=== PATIENT | female | born 1995 | race African-American/Black ===

== ENCOUNTER 2017-02-01 09:14 | Emergency (ER) | payer OTHER ==
[2017-02-01 09:20] VITALS: RESP 16
[2017-02-01] MEDS ORDERED: SODIUM CHLORIDE 0.9% 1,000 ML IV STA (09:45)
[2017-02-01] MEDS ORDERED: METOCLOPRAMIDE 5 MG/ML 2 ML VIAL IVP STA (09:45)
--- NOTE | 2017-02-01 09:47 | ED ---
Nausea/Vomiting/Diarrhea HPI - General Chief complaint: Nausea/Vomiting/Diarrhea Stated complaint: NVD Time Seen by Provider: 02/01/17 09:41 Source: patient, RN notes reviewed Mode of arrival: ambulatory Limitations: no limitations - History of Present Illness Initial comments: Patient 21-year-old female who is G2, P0, 15 weeks with chief complaint of symptoms of nausea vomiting that occurred yesterday. She states that she's had multiple episodes. States decreased appetite. Denies any signs of blood. Denies any abdominal pain. Denies any vaginal bleeding or discharge. Patient denies any recent fever, chills, shortness of breath, chest pain, back pain, abdominal pain, numbness or tingling, dysuria or hematuria, constipation or diarrhea, headaches or visual changes, or any other complaints. - Related Data Previous Rx's Medication Instructions Recorded Metoclopramide HCl [Reglan] 10 mg PO Q6HR PRN #5 day 02/01/17 Allergies Allergy/AdvReac Type Severity Reaction Status Date / Time No Known Allergies Allergy Verified 02/01/17 09:20 Review of Systems ROS Statement: Those systems with pertinent positive or pertinent negative responses have been documented in the HPI. ROS Other: All systems not noted in ROS Statement are negative. Past Medical History Past Medical History: Diabetes Mellitus History of Any Multi-Drug Resistant Organisms: None Reported Past Surgical History: No Surgical Hx Reported Past Psychological History: No Psychological Hx Reported Smoking Status: Current every day smoker Past Alcohol Use History: None Reported Past Drug Use History: None Reported General Exam - General Exam Comments Initial Comments: General: The patient is awake and alert, in no distress, and does not appear acutely ill. Eye: Pupils are equal, round and reactive to light, extra-ocular movements are intact. No nystagmus. There is normal conjunctiva bilaterally. No signs of icterus. Ears, nose, mouth and throat: There are moist mucous membranes and no oral lesions. Neck: The neck is supple, there is no tenderness or JVD. Cardiovascular: There is a regular rate and rhythm. No murmur, rub or gallop is appreciated. Respiratory: Lungs are clear to auscultation, respirations are non-labored, breath sounds are equal. No wheezes, stridor, rales, or rhonchi. Gastrointestinal: Soft, non-distended, non-tender abdomen without masses or organomegaly noted. There is no rebound or guarding present. No CVA tenderness. Bowel sounds are unremarkable. Musculoskeletal: Normal ROM, no tenderness. Strength 5/5. Sensation intact. Pulses equal bilaterally 2+. Neurological: A&O x 3. CN II-XII intact, There are no obvious motor or sensory deficits. Coordination appears grossly intact. Speech is normal. Skin: Skin is warm and dry and no rashes or lesions are noted. Psychiatric: Cooperative, appropriate mood & affect, normal judgment. Limitations: no limitations Course Vital Signs 02/01/17 09:16 Temperature 96.0 F L Pulse Rate 111 H Respiratory 16 Rate Blood Pressure 123/80 O2 Sat by Pulse 100 Oximetry Medical Decision Making - Medical Decision Making Patient's ultrasound shows single IUP measuring 15 weeks 2 days. Heart rate 158. Patient reexamined at this time states she is ready to go home. States she's feeling better. Request nausea medication to go home with. Patient will be discharged advised follow-up through [facility] over the next 2 days. Advised return here to the emergency room if any symptoms increase or worsen or for any other concerns. Disposition Clinical Impression: Hyperemesis gravidarum Disposition: HOME SELF-CARE Condition: Good Instructions: Hyperemesis Gravidarum (ED) Additional Instructions: Please use medication as discussed. Please follow-up with the joint of the next 2 days. Please return to emergency room if the symptoms increase or worsen or for any other concerns. Prescriptions: Metoclopramide HCl [Reglan] 10 mg PO Q6HR PRN #5 day PRN Reason: Nausea Time of Disposition: 11:37
[2017-02-01 11:52] VITALS: BP 123/79; PULSE 93; TEMP 98.2
--- NOTE | 2017-02-01 12:32 | US ---
EXAMINATION TYPE: US OB >= 14 wk fetus DATE OF EXAM: 02/01/2017 11:20 AM COMPARISON: None CLINICAL HISTORY: Pain TECHNIQUE: Transabdominal (TA) GESTATIONAL AGE / DATING Physician Established: not yet established Dates by LMP: unknown Dates by First Scan: 1st scan today Dates by Current Scan: (15 weeks/2 days) EDC: 07/24/17 SURVEY IUP: Single PLACENTA: Posterior PREVIA: possible low lying, patient bladder not full, difficult to assess RANDY: 11.5 cm CERVICAL LENGTH (transabdominal: norm > 3.0cm): 2.6 cm CERVICAL LENGTH (transvaginal: norm> 2.5cm): not done per Adria in ER, patient vomiting during keon t BIOMETRY PRESENTATION: Variable BPD: 2.8 cm 15 weeks / 1 days HC: 10.9 cm 15 weeks / 2 days AC: 8.9 cm 15 weeks / 1 days FL: 1.6 cm 14 weeks / 4 days ESTIMATED WEIGHT IN GRAMS: 110 grams ESTIMATED WEIGHT IN LBS/OZS: 0 lbs. 4 oz. WEIGHT PERCENTAGE BASED ON ESTABLISHED DATES: 25% HC/AC: 1.2 FL/AC: 17.4 HEART RATE: 158 bpm RHYTHM: Normal Technically difficult study, baby very active and patient vomiting during test. IMPRESSION: 1. Single intrauterine gestation estimated at 15 weeks 2 days gestation based on the current ultrasou nd measurements. 2. A low-lying placenta cannot be excluded. This may be technically limited due to incomplete urinary bladder filling during the exam. Follow-up is recommended. 3. Technically difficult examination due to patient's condition and activity during the exam. 4. small parts are not evaluated during the exam.
== END 2017-02-01 11:53 | disposition home or self-care (01) ==
LOC: EC 09:14
DX: O21.0 Mild hyperemesis gravidarum (principal); O99.89 Other specified diseases and conditions complicating pregnancy, childbirth and the puerperium; O99.332 Smoking (tobacco) complicating pregnancy, second trimester; R19.7 Diarrhea, unspecified; F17.200 Nicotine dependence, unspecified, uncomplicated; Z3A.15 15 weeks gestation of pregnancy
CPT/HCPCS: 76805; 99284; 96374; J2765

== ENCOUNTER 2017-02-10 10:07 | Inpatient (IN) | payer OTHER ==
[2017-02-10] MEDS ORDERED: FAMOTIDINE 20 MG/2 ML VIAL IV STA (11:36)
[2017-02-10] MEDS ORDERED: METOCLOPRAMIDE 5 MG/ML 2 ML VIAL IVP STA (11:36)
[2017-02-10] MEDS ORDERED: SODIUM CHLORIDE 0.9% 2,000 ML IV STA (11:36)
--- NOTE | 2017-02-10 11:39 | ED ---
General Adult HPI - General Chief complaint: Nausea/Vomiting/Diarrhea Stated complaint: vomiting, 15 weeks Time Seen by Provider: 02/10/17 11:00 Source: patient, RN notes reviewed Mode of arrival: ambulatory Limitations: no limitations - History of Present Illness Initial comments: Patient is a pleasant 21-year-old female presenting to the emergency Department with nausea and vomiting. Patient states she has vomited since being a , somewhat worse over the past couple of weeks. Patient saw her doctor Tuesday who had considered having her hospitalized however refuses at that time. Patient does see a high school principal doctor in [place]. Patient is diabetic. Patient states her blood sugars have been running high. No abdominal pain. No pelvic pain. No vaginal bleeding. No constipation or diarrhea. - Related Data Previous Rx's Medication Instructions Recorded Metoclopramide HCl [Reglan] 10 mg PO Q6HR PRN #5 day 02/01/17 Allergies Allergy/AdvReac Type Severity Reaction Status Date / Time No Known Allergies Allergy Verified 02/10/17 10:36 Review of Systems ROS Statement: Those systems with pertinent positive or pertinent negative responses have been documented in the HPI. ROS Other: All systems not noted in ROS Statement are negative. Constitutional: Denies: fever Eyes: Denies: eye pain ENT: Denies: ear pain Respiratory: Denies: cough Cardiovascular: Denies: chest pain Endocrine: Denies: fatigue Gastrointestinal: Reports: nausea, vomiting. Denies: abdominal pain Genitourinary: Denies: dysuria Musculoskeletal: Denies: back pain Skin: Denies: rash Neurological: Denies: weakness Past Medical History Past Medical History: Diabetes Mellitus History of Any Multi-Drug Resistant Organisms: None Reported Past Surgical History: No Surgical Hx Reported Past Psychological History: No Psychological Hx Reported Smoking Status: Former smoker Past Alcohol Use History: None Reported Past Drug Use History: None Reported General Exam Limitations: no limitations General appearance: alert, in no apparent distress Head exam: Present: atraumatic Eye exam: Present: normal appearance, PERRL ENT exam: Present: normal oropharynx Neck exam: Present: normal inspection Respiratory exam: Present: normal lung sounds bilaterally Cardiovascular Exam: Present: tachycardia GI/Abdominal exam: Present: soft, distended (Suprapubic distention consistent with patient's reported 15 weeks gravid state), normal bowel sounds. Absent: tenderness, guarding, rebound, rigid Extremities exam: Present: normal inspection Neurological exam: Present: alert Psychiatric exam: Present: normal affect, normal mood Skin exam: Absent: rash Course Vital Signs 02/10/17 10:37 Temperature 98 F Pulse Rate 126 H Respiratory 20 Rate Blood Pressure 114/90 O2 Sat by Pulse 100 Oximetry Medical Decision Making - Medical Decision Making Patient reexamined and somewhat improved. Patient is tolerating some oral intake. Patient does have dehydration confirmed with laboratory data. Acetone is positive. Acetone is likely a combination of mild DKA with dehydration from hyperemesis. Case was discussed in detail with Dr. Kern who is comfortable with admitting the patient and does recommend DKA protocol. Consult for on-call OB/ [facility]. - Lab Data Result diagrams: 02/10/17 11:15 02/10/17 11:15 Lab Results 02/10/17 02/10/17 02/10/17 Range/Units 11:13 11:15 11:15 WBC 10.7 H (3.8-10.6) k/uL RBC 4.54 (3.80-5.40) m/uL Hgb 13.1 (11.4-16.0) gm/dL Hct 40.7 (34.0-46.0) % MCV 89.8 (80.0-100.0) fL MCH 28.8 (25.0-35.0) pg MCHC 32.1 (31.0-37.0) g/dL RDW 12.5 (11.5-15.5) % Plt Count 404 (150-450) k/uL Neutrophils % 78 % Lymphocytes % 15 % Monocytes % 4 % Eosinophils % 1 % Basophils % 1 % Neutrophils # 8.3 H (1.3-7.7) k/uL Lymphocytes # 1.6 (1.0-4.8) k/uL Monocytes # 0.4 (0-1.0) k/uL Eosinophils # 0.1 (0-0.7) k/uL Basophils # 0.1 (0-0.2) k/uL Sodium 132 L (137-145) mmol/L Potassium 4.7 (3.5-5.1) mmol/L Chloride 96 L (98-107) mmol/L Carbon Dioxide 24 (22-30) mmol/L Anion Gap 12 mmol/L BUN 9 (7-17) mg/dL Creatinine 0.40 L (0.52-1.04) mg/dL Est GFR (MDRD) Af Amer >60 (>60 ml/min/1.73 sqM) Est GFR (MDRD) Non-Af >60 (>60 ml/min/1.73 sqM) Glucose 262 H (74-99) mg/dL POC Glucose (mg/dL) 275 H (75-99) mg/dL POC Glu [employer] Software Developer ID Lydia Hernandez Calcium 9.9 (8.4-10.2) mg/dL Total Bilirubin 0.7 (0.2-1.3) mg/dL AST 24 (14-36) U/L ALT 21 (9-52) U/L Alkaline Phosphatase 95 (38-126) U/L Total Protein 8.2 (6.3-8.2) g/dL Albumin 4.2 (3.5-5.0) g/dL Amylase 51 (30-110) U/L Lipase 34 (23-300) U/L HCG, Quant mIU/mL Urine Color Urine Appearance (Clear) Urine pH (5.0-8.0) Ur Specific Roll (1.001-1.035) Urine Protein (Negative) Urine Glucose (UA) (Negative) Urine Ketones (Negative) Urine Blood (Negative) Urine Nitrite (Negative) Urine Bilirubin (Negative) Urine Urobilinogen (<2.0) mg/dL Ur Leukocyte Esterase (Negative) Urine RBC (0-5) /hpf Urine WBC (0-5) /hpf Ur Squamous Epith Cells (0-4) /hpf Acetone, Qual Positive (Negative) 02/10/17 02/10/17 Range/Units 11:15 12:10 WBC (3.8-10.6) k/uL RBC (3.80-5.40) m/uL Hgb (11.4-16.0) gm/dL Hct (34.0-46.0) % MCV (80.0-100.0) fL MCH (25.0-35.0) pg MCHC (31.0-37.0) g/dL RDW (11.5-15.5) % Plt Count (150-450) k/uL Neutrophils % % Lymphocytes % % Monocytes % % Eosinophils % % Basophils % % Neutrophils # (1.3-7.7) k/uL Lymphocytes # (1.0-4.8) k/uL Monocytes # (0-1.0) k/uL Eosinophils # (0-0.7) k/uL Basophils # (0-0.2) k/uL Sodium (137-145) mmol/L Potassium (3.5-5.1) mmol/L Chloride (98-107) mmol/L Carbon Dioxide (22-30) mmol/L Anion Gap mmol/L BUN (7-17) mg/dL Creatinine (0.52-1.04) mg/dL Est GFR (MDRD) Af Amer (>60 ml/min/1.73 sqM) Est GFR (MDRD) Non-Af (>60 ml/min/1.73 sqM) Glucose (74-99) mg/dL POC Glucose (mg/dL) (75-99) mg/dL POC Glu Scientific Software Developer ID Calcium (8.4-10.2) mg/dL Total Bilirubin (0.2-1.3) mg/dL AST (14-36) U/L ALT (9-52) U/L Alkaline Phosphatase (38-126) U/L Total Protein (6.3-8.2) g/dL Albumin (3.5-5.0) g/dL Amylase (30-110) U/L Lipase (23-300) U/L HCG, Quant 79066.8 mIU/mL Urine Color Yellow Urine Appearance Cloudy H (Clear) Urine pH 6.5 (5.0-8.0) Ur Specific Roll 1.030 (1.001-1.035) Urine Protein Trace H (Negative) Urine Glucose (UA) 4+ H (Negative) Urine Ketones 4+ H (Negative) Urine Blood Negative (Negative) Urine Nitrite Negative (Negative) Urine Bilirubin Negative (Negative) Urine Urobilinogen <2.0 (<2.0) mg/dL Ur Leukocyte Esterase Small H (Negative) Urine RBC 7 H (0-5) /hpf Urine WBC 17 H (0-5) /hpf Ur Squamous Epith Cells 1 (0-4) /hpf Acetone, Qual (Negative) Critical Care Time Critical Care Time: Yes Total Critical Care Time: 32 Disposition Clinical Impression: Hyperemesis gravidarum, Diabetic ketoacidosis Disposition: ADMITTED IP TO THIS HOSP
[2017-02-10 11:54] LABS: Basophils # (A) 0.1 k/uL (0-0.2); Basophils % (A) 1 %; CH 30.2; CHCM 33.8; Eosinophils # (A) 0.1 k/uL (0-0.7); Eosinophils % (A) 1 %; HCT 40.7 % (34.0-46.0); HDW 2.59; HGB 13.1 gm/dL (11.4-16.0); Luc # (Auto) 0.17; Luc % (Auto) 2; Lymphocytes # (A) 1.6 k/uL (1.0-4.8); Lymphocytes % (A) 15 %; MCH 28.8 pg (25.0-35.0); MCHC 32.1 g/dL (31.0-37.0); MCV 89.8 fL (80.0-100.0); Monocytes # (A) 0.4 k/uL (0-1.0); Monocytes % (A) 4 %; Neutrophils # (A) 8.3 k/uL (1.3-7.7); Neutrophils % (A) 78 %; RBC 4.54 m/uL (3.80-5.40); RDW 12.5 % (11.5-15.5); WBC 10.7 k/uL (3.8-10.6); WBC (Perox) 10.52
[2017-02-10 12:07] LABS: ALT 21 U/L (9-52); AST 24 U/L (14-36); Alkaline Phosphatase 95 U/L (38-126); Amylase 51 U/L (30-110); Anion Gap 12 mmol/L; Blood Urea Nitrogen 9 mg/dL (7-17); Calcium 9.9 mg/dL (8.4-10.2); Carbon Dioxide 24 mmol/L (22-30); Chloride 96 mmol/L (98-107); Glucose 262 mg/dL (74-99); Non-African American GFR(MDRD) >60 (>60 ml/min/1.73 sqM); Potassium 4.7 mmol/L (3.5-5.1); Sodium 132 mmol/L (137-145); Total Bilirubin 0.7 mg/dL (0.2-1.3); Total Protein 8.2 g/dL (6.3-8.2)
[2017-02-10 12:27] LABS: Appearance,Urine Cloudy (Clear); Bilirubin,Urine Negative (Negative); Glucose,Urine (UA) 4+ (Negative); Leukocyte Esterase,Urine Small (Negative); Nitrite,Urine Negative (Negative); PH, Urine 6.5 (5.0-8.0); Particle Count 6862; Protein,Urine Trace (Negative); RBC,Urine 7 /hpf (0-5); Squamous Epithelial Cell,Urine 1 /hpf (0-4); UA Billing (MACRO vs. MICRO) MICRO; Urobilinogen,Urine <2.0 mg/dL (<2.0); WBC,Urine 17 /hpf (0-5)
[2017-02-10 12:59] LABS: Glucose,Whole Blood 275 mg/dL (75-99)
[2017-02-10 13:44] LABS: Ketones,Urine 4+ (Negative)
[2017-02-10] MEDS ORDERED: INSULIN REGULAR BOLUS (FROM DRIP BAG) IV ONE (15:09)
[2017-02-10] MEDS ORDERED: NITROFURANTOIN MONOHYD/M-CRYST 100 MG CAP PO STA (15:14)
[2017-02-10] MEDS: SODIUM CHLORIDE 0.9% 1,000 ML IV SCH (15:41)
[2017-02-10 15:46] LABS: Glucose,Whole Blood 166 mg/dL (75-99)
[2017-02-10] MEDS ORDERED: INSULIN REGULAR 100 UNIT in SODIUM CHLORIDE 0.9% 100 ML IV SCH (16:00)
[2017-02-10] MEDS ORDERED: D5-0.45% NACL WITH KCL 20MEQ/L 1,000 ML IV SCH (16:00)
[2017-02-10 16:24] LABS: Glucose,Whole Blood 185 mg/dL (75-99)
[2017-02-10 17:08] LABS: Glucose,Whole Blood 147 mg/dL (75-99)
[2017-02-10] MEDS: METOCLOPRAMIDE 5 MG/ML 2 ML VIAL IVP SCH (17:37)
[2017-02-10 18:06] LABS: Anion Gap 8 mmol/L; Blood Urea Nitrogen 7 mg/dL (7-17); Carbon Dioxide 21 mmol/L (22-30); Chloride 102 mmol/L (98-107); Glucose 93 mg/dL (74-99); Non-African American GFR(MDRD) >60 (>60 ml/min/1.73 sqM); Sodium 131 mmol/L (137-145)
[2017-02-10 18:38] LABS: Glucose,Whole Blood 150 mg/dL (75-99)
[2017-02-10] MEDS ORDERED: ZOLPIDEM 5 MG TAB PO PRN (19:38)
[2017-02-10 20:09] LABS: Glucose,Whole Blood 139 mg/dL (75-99)
[2017-02-10 21:09] LABS: Glucose,Whole Blood 139 mg/dL (75-99)
--- NOTE | 2017-02-10 21:27 | US ---
EXAMINATION TYPE: US OB >= 14 wk fetus DATE OF EXAM: 02/10/2017 7:48 PM COMPARISON: Prior in PACS CLINICAL HISTORY: DKA TECHNIQUE: Transvaginal (TV) and Transabdominal (TA) GESTATIONAL AGE / DATING Physician Established: (16 weeks/4 days) EDC: 07/24/2017 Dates by LMP: Unknown Dates by First Scan: (16 weeks/4 days) EDC: 07/24/2017 Dates by Current Scan: (16 weeks/2 days) EDC: 07/26/2017 SURVEY IUP: Single PLACENTA: Posterior PREVIA: Complete. No previa visualized on transabdominal imaging, however when the patient emptied h er bladder and the cervix was imaged transvaginally, there was complete previa visualized RANDY: 12.3 cm Normal CERVICAL LENGTH (transabdominal: norm > 3.0cm): 2.4 cm CERVICAL LENGTH (transvaginal: norm> 2.5cm): 2.5 cm (Supplemental transvaginal imaging performed to verify cervical length.) BIOMETRY PRESENTATION: Breech LIE: Longitudinal BPD: 3.35 cm 16 weeks / 3 days HC: 12.4 cm 16 weeks / 2 days AC: 10.6 cm 16 weeks / 4 days FL: 1.94 cm 15 weeks / 5 days ESTIMATED WEIGHT IN GRAMS: 148.5 grams ESTIMATED WEIGHT IN LBS/OZS: 0 lbs. 5 oz. WEIGHT PERCENTAGE BASED ON ESTABLISHED DATES: 21.3% HC/AC: 1.16 Normal FL/AC: 18.1 Normal HEART RATE: 153 bpm RHYTHM: Normal Viable IUP, measurements congruent with dates. IMPRESSION: There is a low-lying posterior placenta. I do not see a placenta previa. Cervix is closed and measure s 2.6 cm.
[2017-02-10] MEDS: NITROFURANTOIN MONOHYD/M-CRYST 100 MG CAP PO SCH (21:49)
[2017-02-10] MEDS: INSULIN LISPRO (humaLOG) 300 UNIT/3 ML VIAL SQ SCH (21:50)
[2017-02-10 22:04] LABS: Anion Gap 9 mmol/L; Blood Urea Nitrogen 7 mg/dL (7-17); Carbon Dioxide 21 mmol/L (22-30); Chloride 101 mmol/L (98-107); Glucose 150 mg/dL (74-99); Non-African American GFR(MDRD) >60 (>60 ml/min/1.73 sqM); Phosphorous 3.4 mg/dL (2.5-4.5); Potassium 4.3 mmol/L (3.5-5.1); Sodium 131 mmol/L (137-145)
[2017-02-11] MEDS ORDERED: METOCLOPRAMIDE 5 MG/ML 2 ML VIAL ONE
[2017-02-11 05:35] LABS: Glucose,Whole Blood 214 mg/dL (75-99)
[2017-02-11] MEDS: SODIUM CHLORIDE 0.9% 1,000 ML IV SCH ×2 (05:50→12:10)
[2017-02-11] MEDS: METOCLOPRAMIDE 5 MG/ML 2 ML VIAL IVP SCH ×3 (05:50→12:09)
[2017-02-11] MEDS: INSULIN LISPRO (humaLOG) 300 UNIT/3 ML VIAL SQ SCH ×2 (06:40→12:09)
[2017-02-11 06:54] LABS: Basophils % (A) 0 %; CH 29.9; CHCM 33.7; Eosinophils # (A) 0.1 k/uL (0-0.7); Eosinophils % (A) 1 %; HCT 33.5 % (34.0-46.0); HDW 2.58; HGB 11.2 gm/dL (11.4-16.0); Luc # (Auto) 0.14; Luc % (Auto) 2; Lymphocytes # (A) 2.2 k/uL (1.0-4.8); Lymphocytes % (A) 23 %; MCH 29.8 pg (25.0-35.0); MCHC 33.5 g/dL (31.0-37.0); MCV 88.9 fL (80.0-100.0); Monocytes # (A) 0.5 k/uL (0-1.0); Monocytes % (A) 5 %; Neutrophils # (A) 6.4 k/uL (1.3-7.7); Neutrophils % (A) 69 %; RBC 3.77 m/uL (3.80-5.40); RDW 12.5 % (11.5-15.5); WBC 9.3 k/uL (3.8-10.6)
[2017-02-11 07:12] LABS: ALT 19 U/L (9-52); AST 10 U/L (14-36); Alkaline Phosphatase 76 U/L (38-126); Anion Gap 8 mmol/L; Blood Urea Nitrogen 4 mg/dL (7-17); Carbon Dioxide 25 mmol/L (22-30); Chloride 100 mmol/L (98-107); Glucose 199 mg/dL (74-99); Non-African American GFR(MDRD) >60 (>60 ml/min/1.73 sqM); Potassium 4.4 mmol/L (3.5-5.1); Sodium 133 mmol/L (137-145); Total Bilirubin 0.4 mg/dL (0.2-1.3); Total Protein 6.5 g/dL (6.3-8.2)
[2017-02-11 07:58] VITALS: TEMP 98.2
[2017-02-11] MEDS ORDERED: FAMOTIDINE 20 MG in SODIUM CHLORIDE 0.9% 50 ML IVPB SCH (09:00)
[2017-02-11] MEDS ORDERED: FAMOTIDINE 20 MG/2 ML VIAL IV SCH (09:00)
[2017-02-11] MEDS: NITROFURANTOIN MONOHYD/M-CRYST 100 MG CAP PO SCH (09:46)
--- NOTE | 2017-02-11 09:48 | P.OBCN ---
History of Present Illness Consult date: 02/11/17 Requesting physician: Artur Hughes Reason for consult: other (ob care) Chief complaint: uncontrolled diabetes History of present illness: 21-year-old presented to the hospital at 16 weeks with uncontrolled diabetes. She sees and obstetric position in [place] out of [place]. Last visit was just this past Tuesday. Ultrasound done here yesterday showed a viable 16 week fetus with a heart rate of 153. Her blood sugars remain uncontrolled. Review of Systems All systems: negative Constitutional: Denies chills, Denies fever Eyes: denies blurred vision, denies pain Ears, nose, mouth and throat: Denies headache, Denies sore throat Cardiovascular: Denies chest pain, Denies shortness of breath Respiratory: Denies cough Gastrointestinal: Denies abdominal pain, Denies diarrhea, Denies nausea, Denies vomiting Genitourinary: Denies dysuria, Denies hematuria Musculoskeletal: Denies myalgias Integumentary: Denies pruritus, Denies rash Neurological: Denies numbness, Denies weakness Psychiatric: Denies anxiety, Denies depression Endocrine: Denies fatigue, Denies weight change Past Medical History Past Medical History: Diabetes Mellitus Additional Past Medical History / Comment(s): OB history: She's had one miscarriage. This is her second . History of Any Multi-Drug Resistant Organisms: None Reported Past Surgical History: No Surgical Hx Reported Past Psychological History: No Psychological Hx Reported Smoking Status: Never smoker Past Alcohol Use History: None Reported Past Drug Use History: None Reported - Past Family History Mother Family Medical History: Diabetes Mellitus Medications and Allergies Allergies Allergy/AdvReac Type Severity Reaction Status Date / Time No Known Allergies Allergy Verified 02/10/17 10:36 Exam Osteopathic Statement: *. No significant issues noted on an osteopathic structural exam other than those noted in the History and Physical/Consult. - Vital Signs Vital signs: Vital Signs Temp Pulse Pulse Resp BP BP Pulse Ox 02/11/17 08:00 18 02/11/17 07:56 98.2 F 103 H 18 99/63 100 02/11/17 04:00 97.3 F L 91 18 105/71 100 02/10/17 23:02 97.1 F L 90 17 109/65 98 02/10/17 20:22 97.6 F 103 H 17 123/88 97 02/10/17 16:42 90 17 100 02/10/17 16:24 95 18 103/72 99 02/10/17 15:56 97.2 F L 92 16 107/69 99 Intake and Output 02/10/17 02/11/17 02/11/17 22:59 06:59 14:59 Intake Total 413.088 600 120 Balance 413.088 600 120 Intake: IV 400 D5-0.45% NaCl with KCl 400 20Meq/l 1,000 ml @ 50 mls /hr IV .Q20H DUSTIN Rx#: [id number] Intake, IV Titration 13.088 Amount Insulin Regular 100 unit 13.088 In Sodium Chloride 0.9% 100 ml @ 0.1 UNITS/KG/HR 6.55 mls/hr IV .[id number] DUSTIN Rx#:[id number] Oral 600 120 Other: # Voids 2 Weight 64.86 kg 65.9 kg Heart: Regular rate and rhythm Lungs: Clear to auscultation bilaterally Abdomen: Soft, nontender Extremities: Negative Homans sign Results Result Diagrams: 02/11/17 06:27 02/11/17 06:27 Abnormal Lab Results - Last 24 Hours (Table) 02/10/17 02/10/17 02/10/17 Range/Units 15:44 16:22 17:06 RBC (3.80-5.40) m/uL Hgb (11.4-16.0) gm/dL Hct (34.0-46.0) % Sodium (137-145) mmol/L Carbon Dioxide (22-30) mmol/L BUN (7-17) mg/dL Creatinine (0.52-1.04) mg/dL Glucose (74-99) mg/dL POC Glucose (mg/dL) 166 H 185 H 147 H (75-99) mg/dL AST (14-36) U/L Albumin (3.5-5.0) g/dL 02/10/17 02/10/17 02/10/17 Range/Units 17:41 18:35 20:06 RBC (3.80-5.40) m/uL Hgb (11.4-16.0) gm/dL Hct (34.0-46.0) % Sodium 131 L (137-145) mmol/L Carbon Dioxide 21 L (22-30) mmol/L BUN (7-17) mg/dL Creatinine 0.34 L (0.52-1.04) mg/dL Glucose (74-99) mg/dL POC Glucose (mg/dL) 150 H 139 H (75-99) mg/dL AST (14-36) U/L Albumin (3.5-5.0) g/dL 02/10/17 02/10/17 02/11/17 Range/Units 21:07 21:12 05:33 RBC (3.80-5.40) m/uL Hgb (11.4-16.0) gm/dL Hct (34.0-46.0) % Sodium 131 L (137-145) mmol/L Carbon Dioxide 21 L (22-30) mmol/L BUN (7-17) mg/dL Creatinine 0.36 L (0.52-1.04) mg/dL Glucose 150 H (74-99) mg/dL POC Glucose (mg/dL) 139 H 214 H (75-99) mg/dL AST (14-36) U/L Albumin (3.5-5.0) g/dL 02/11/17 02/11/17 Range/Units 06:27 06:27 RBC 3.77 L (3.80-5.40) m/uL Hgb 11.2 L (11.4-16.0) gm/dL Hct 33.5 L (34.0-46.0) % Sodium 133 L (137-145) mmol/L Carbon Dioxide (22-30) mmol/L BUN 4 L (7-17) mg/dL Creatinine 0.36 L (0.52-1.04) mg/dL Glucose 199 H (74-99) mg/dL POC Glucose (mg/dL) (75-99) mg/dL AST 10 L (14-36) U/L Albumin 3.2 L (3.5-5.0) g/dL Assessment and Plan (1) Hyperemesis gravidarum Status: Acute (2) Type 1 diabetes mellitus affecting in second trimester, antepartum Status: Acute Plan: 1. There is no further obstetrical care needed at this time with this admission but she will need close follow-up especially with her blood sugars outpatient with her high risk doctors in [place]. I did explain to the patient the risks of having uncontrolled diabetes and including heart defects and stillbirth.
[2017-02-11 11:56] LABS: Glucose,Whole Blood 329 mg/dL (75-99)
[2017-02-11 12:10] LABS: Hemoglobin A1C 8.7 % (4.2-6.1)
[2017-02-11 12:12] VITALS: BMI 22.7
[2017-02-11 12:15] VITALS: BP 112/65; PULSE 100; RESP 17
--- NOTE | 2017-02-11 22:00 | HP ---
The patient is a 21-year-old female, came in with intractable nausea, vomiting and patient is, I believe, 9 weeks , and patient appears to have hyperemesis gravidarum. Patient appears to have gestational diabetes mellitus as well, did have elevated blood sugars and when she was admitted, there was a concern about DKA. Because of nausea and vomiting, patient may have starvation ketosis that, along with elevated blood sugar, may have contributed to her ketoacidosis as well and patient has an anion gap of around 12, because of which patient was admitted here. Patient was put on IV insulin ( ) which was switched to subcutaneous t.i.d. insulin. Patient's nausea and vomiting improved with Reglan. Patient denied any dysuria or chills. Patient had a cough, but no dysuria. Patient denied any dysuria, although urine is a little abnormal, because of which patient was put on nitrofurantoin with subsequent resolution of symptoms at this point of time. Patient denied any vaginal bleed. Patient denied any constipation or diarrhea. Patient was seen by OB Service here. They recommended evaluation by OB and follow in [facility] for her high-risk because of her gestational diabetes mellitus. Patient's symptoms improved at this point of time. Patient is not in DKA. Patient will be discharged on sliding scale insulin, nitrofurantoin for a couple more days along with Reglan on p.r.n. basis for hyperemesis gravidarum. Home medications include: 1. Reglan. 2. Zofran. ALLERGIES: No known drug allergies. REVIEW OF SYSTEMS: CONSTITUTIONAL: As described in HPI. Was complaining of fatigue, tiredness. HEENT: No recent visual problems or hearing problems. Denied any sore throat. CARDIOVASCULAR: No chest pain, orthopnea, PND, no palpitations, no syncope. PULMONARY: No shortness of breath, no cough, no hemoptysis. GASTROINTESTINAL: As described in HPI. NEUROLOGICAL: No headaches, no weakness, no numbness. HEMATOLOGICAL: Denies any bleeding or petechiae. GENITOURINARY: Denies any burning micturition, frequency, or urgency. MUSCULOSKELETAL/RHEUMATOLOGICAL: Denies any joint pain, swelling, or any muscle pain. ENDOCRINE: Denies any polyuria or polydipsia. PAST MEDICAL HISTORY: Gestational diabetes mellitus. SOCIAL HISTORY: Former smoker. Denied any alcohol abuse or any drug abuse. FAMILY HISTORY: Significant for diabetes mellitus in multiple family members. PHYSICAL EXAMINATION: VITAL SIGNS: Temperature 98.0, pulse of 126 when she came in, which then came down to 90, respiratory rate of 20, blood pressure is 114/90, saturating at 100% on room air. GENERAL: Patient appears to be a little tired; alert and oriented x3. HEENT: Pupils are round and equally reacting to light. EOMI. No scleral icterus. No conjunctival pallor. Normocephalic, atraumatic. No pharyngeal erythema. No thyromegaly. CARDIOVASCULAR: S1 and S2 present. No murmurs, rubs, or gallops. PULMONARY: Chest is clear to auscultation, no wheezing or crackles. ABDOMEN: Deferred to OB Services. OB: Deferred to OB Services. MUSCULOSKELETAL: No joint swelling or deformity. EXTREMITIES: No cyanosis, clubbing, or pedal edema. NEUROLOGICAL: Gross neurological examination did not reveal any focal deficits. SKIN: No rashes. LABORATORY DATA: CBC, CMP are abnormal for slightly elevated WBC count of 10,900, reactive leukocytosis. Sodium is 132. AST and ALT and lipase are essentially within normal limits. Urine is positive for acetone. UA was reviewed as well. ASSESSMENT AND PLAN: 1. Hyperemesis gravidarum. Symptomatic treatment with Reglan. Patient will be discharged on Reglan. 2. Possible asymptomatic bacteriuria for which she is now taking Bactrim. In terms of the , patient will need to be treated even for asymptomatic bacteriuria and the patient will receive 2 days of antibiotic therapy and when discharged on 3 more days of antibiotic. 3. Ketoacidosis and gestational diabetes mellitus. The patient may have component of mild diabetic ketoacidosis, mostly has starvation ketosis. Patient will be discharged on sliding scale insulin. Patient was started on diet here. Patient was evaluated by Obstetrical Services here. 4. Discharge diet: Diabetic diet. 5. Activity as tolerated. 6. Will refer her to Dr. Carla Connor for medicine followup and patient will be asked to follow up with doctor in [facility] for high-risk .
== END 2017-02-11 15:01 | disposition home or self-care (01) | DRG 781 ==
LOC: EC 10:07 → 6SEL 15:11
PROVIDERS: ADMIT Internal Medicine; ATTEND Internal Medicine
DX: O21.1 Hyperemesis gravidarum with metabolic disturbance (principal); E86.0 Dehydration; O24.410 Gestational diabetes mellitus in pregnancy, diet controlled; Z3A.16 16 weeks gestation of pregnancy; O99.282 Endocrine, nutritional and metabolic diseases complicating pregnancy, second trimester; O99.89 Other specified diseases and conditions complicating pregnancy, childbirth and the puerperium; Z83.3 Family history of diabetes mellitus; Z87.891 Personal history of nicotine dependence
CPT/HCPCS: 36415; 76805; 80051; 80053; 81001; 82009; 82150; 82565; 82947; 83036; 83690; 84100; 84520; 84702; 85025; 87086; 96361; 96365; 96375; 99285

== ENCOUNTER 2017-03-06 12:34 | Emergency (ER) | payer OTHER ==
--- NOTE | 2017-03-06 13:00 | ED ---
General Adult HPI - General Stated complaint: dehydration Time Seen by Provider: 03/06/17 12:58 Source: RN notes reviewed, old records reviewed - History of Present Illness Initial comments: This is a 21-year-old female ER for evaluation. The patient presents for evaluation of weakness, not feeling well, increased nausea and vomiting. Patient has medical history of similar issues, history of diabetes. No fevers. No cough congestion of travel history, no diarrhea. No other family members with similar symptoms. - Related Data Home Medications Medication Instructions Recorded Confirmed INSULIN LISPRO (humaLOG) [humaLOG 6 units SQ AC-TID 03/06/17 03/06/17 (formulary)] Previous Rx's Medication Instructions Recorded Metoclopramide HCl [Reglan] 5 mg PO QID PRN #60 tablet 02/11/17 Allergies Allergy/AdvReac Type Severity Reaction Status Date / Time No Known Allergies Allergy Verified 03/06/17 13:16 Review of Systems ROS Statement: Those systems with pertinent positive or pertinent negative responses have been documented in the HPI. ROS Other: All systems not noted in ROS Statement are negative. Past Medical History Past Medical History: Diabetes Mellitus Additional Past Medical History / Comment(s): OB history: She's had one miscarriage. This is her second . History of Any Multi-Drug Resistant Organisms: None Reported Past Surgical History: No Surgical Hx Reported Past Psychological History: No Psychological Hx Reported Smoking Status: Never smoker Past Alcohol Use History: None Reported Past Drug Use History: None Reported - Past Family History Mother Family Medical History: Diabetes Mellitus General Exam General appearance: alert, in no apparent distress Head exam: Present: atraumatic, normocephalic, normal inspection Eye exam: Present: normal appearance, PERRL, EOMI. Absent: scleral icterus, conjunctival injection, periorbital swelling ENT exam: Present: normal exam, mucous membranes moist Neck exam: Present: normal inspection. Absent: tenderness, meningismus, lymphadenopathy Respiratory exam: Present: normal lung sounds bilaterally. Absent: respiratory distress, wheezes, rales, rhonchi, stridor Cardiovascular Exam: Present: regular rate, normal rhythm, normal heart sounds. Absent: systolic murmur, diastolic murmur, rubs, gallop, clicks GI/Abdominal exam: Present: soft, normal bowel sounds. Absent: distended, tenderness, guarding, rebound, rigid Extremities exam: Present: normal inspection, full ROM, normal capillary refill. Absent: tenderness, pedal edema, joint swelling, calf tenderness Back exam: Present: normal inspection Neurological exam: Present: alert, oriented X3, CN II-XII intact Psychiatric exam: Present: normal affect, normal mood Skin exam: Present: warm, dry, intact, normal color. Absent: rash Course Vital Signs 03/06/17 03/06/17 13:00 14:20 Temperature 99.0 F Pulse Rate 70 104 H Respiratory 16 16 Rate Blood Pressure 111/73 141/103 O2 Sat by Pulse 98 100 Oximetry - Reevaluation(s) Reevaluation #1: 03/06/17 15:01 At this point patient is symptoms aren't improved Medical Decision Making - Medical Decision Making 21 female here for evaluation. Patient has history of diabetes, and consistent nausea and vomiting. Patient can be discharged home, will place patient on nausea vomiting medication - Lab Data Result diagrams: 03/06/17 14:14 03/06/17 14:14 Lab Results 03/06/17 03/06/17 03/06/17 Range/Units 13:30 14:14 14:14 WBC 6.9 (3.8-10.6) k/uL RBC 4.23 (3.80-5.40) m/uL Hgb 12.3 (11.4-16.0) gm/dL Hct 37.4 (34.0-46.0) % MCV 88.3 (80.0-100.0) fL MCH 29.1 (25.0-35.0) pg MCHC 33.0 (31.0-37.0) g/dL RDW 12.3 (11.5-15.5) % Plt Count 384 (150-450) k/uL Neutrophils % 65 % Lymphocytes % 28 % Monocytes % 4 % Eosinophils % 1 % Basophils % 1 % Neutrophils # 4.5 (1.3-7.7) k/uL Lymphocytes # 1.9 (1.0-4.8) k/uL Monocytes # 0.3 (0-1.0) k/uL Eosinophils # 0.0 (0-0.7) k/uL Basophils # 0.0 (0-0.2) k/uL Sodium (137-145) mmol/L Potassium (3.5-5.1) mmol/L Chloride (98-107) mmol/L Carbon Dioxide (22-30) mmol/L Anion Gap mmol/L BUN (7-17) mg/dL Creatinine (0.52-1.04) mg/dL Est GFR (MDRD) Af Amer (>60 ml/min/1.73 sqM) Est GFR (MDRD) Non-Af (>60 ml/min/1.73 sqM) Glucose (74-99) mg/dL Calcium (8.4-10.2) mg/dL Phosphorus (2.5-4.5) mg/dL Magnesium (1.6-2.3) mg/dL Total Bilirubin (0.2-1.3) mg/dL AST (14-36) U/L ALT (9-52) U/L Alkaline Phosphatase (38-126) U/L Total Creatine Kinase <20 L (30-135) U/L Total Protein (6.3-8.2) g/dL Albumin (3.5-5.0) g/dL HCG, Qual Urine Color Yellow Urine Appearance Cloudy H (Clear) Urine pH 6.0 (5.0-8.0) Ur Specific [place] 1.022 (1.001-1.035) Urine Protein Trace H (Negative) Urine Glucose (UA) 4+ H (Negative) Urine Ketones 4+ H (Negative) Urine Blood Negative (Negative) Urine Nitrite Negative (Negative) Urine Bilirubin Negative (Negative) Urine Urobilinogen 2.0 (<2.0) mg/dL Ur Leukocyte Esterase Large H (Negative) Urine RBC 5 (0-5) /hpf Urine WBC 17 H (0-5) /hpf Ur Squamous Epith Cells 12 H (0-4) /hpf Urine Bacteria Rare H (None) /hpf Urine Mucus Occasional H (None) /hpf 03/06/17 Range/Units 14:14 WBC (3.8-10.6) k/uL RBC (3.80-5.40) m/uL Hgb (11.4-16.0) gm/dL Hct (34.0-46.0) % MCV (80.0-100.0) fL MCH (25.0-35.0) pg MCHC (31.0-37.0) g/dL RDW (11.5-15.5) % Plt Count (150-450) k/uL Neutrophils % % Lymphocytes % % Monocytes % % Eosinophils % % Basophils % % Neutrophils # (1.3-7.7) k/uL Lymphocytes # (1.0-4.8) k/uL Monocytes # (0-1.0) k/uL Eosinophils # (0-0.7) k/uL Basophils # (0-0.2) k/uL Sodium 132 L (137-145) mmol/L Potassium 4.3 (3.5-5.1) mmol/L Chloride 99 (98-107) mmol/L Carbon Dioxide 23 (22-30) mmol/L Anion Gap 10 mmol/L BUN 8 (7-17) mg/dL Creatinine 0.44 L (0.52-1.04) mg/dL Est GFR (MDRD) Af Amer >60 (>60 ml/min/1.73 sqM) Est GFR (MDRD) Non-Af >60 (>60 ml/min/1.73 sqM) Glucose 203 H (74-99) mg/dL Calcium 9.5 (8.4-10.2) mg/dL Phosphorus 3.9 (2.5-4.5) mg/dL Magnesium 1.6 (1.6-2.3) mg/dL Total Bilirubin 0.5 (0.2-1.3) mg/dL AST 12 L (14-36) U/L ALT 18 (9-52) U/L Alkaline Phosphatase 70 (38-126) U/L Total Creatine Kinase (30-135) U/L Total Protein 7.2 (6.3-8.2) g/dL Albumin 3.7 (3.5-5.0) g/dL HCG, Qual Detected Urine Color Urine Appearance (Clear) Urine pH (5.0-8.0) Ur Specific [place] (1.001-1.035) Urine Protein (Negative) Urine Glucose (UA) (Negative) Urine Ketones (Negative) Urine Blood (Negative) Urine Nitrite (Negative) Urine Bilirubin (Negative) Urine Urobilinogen (<2.0) mg/dL Ur Leukocyte Esterase (Negative) Urine RBC (0-5) /hpf Urine WBC (0-5) /hpf Ur Squamous Epith Cells (0-4) /hpf Urine Bacteria (None) /hpf Urine Mucus (None) /hpf Disposition Clinical Impression: Dehydration, Type 1 diabetes mellitus affecting in second trimester, antepartum, Hyperemesis gravidarum Disposition: HOME SELF-CARE Condition: Good Instructions: Acute Nausea and Vomiting (ED) Referrals: None,Stated [Primary Care Provider] - 1-2 days
[2017-03-06] MEDS ORDERED: SODIUM CHLORIDE 0.9% 500 ML IV STA (13:12)
[2017-03-06] MEDS ORDERED: ONDANSETRON 4 MG/2 ML VIAL IVP STA (13:12)
[2017-03-06] MEDS ORDERED: SODIUM CHLORIDE 0.9% 1,000 ML IV STA (13:12)
[2017-03-06] MEDS ORDERED: PYRIDOXINE 100 MG/ML 1 ML VIAL IVP STA (13:13)
[2017-03-06] MEDS ORDERED: diphenhydrAMINE 50 MG/ML 1 ML VIAL IVP STA (13:13)
[2017-03-06 13:34] VITALS: RESP 16
[2017-03-06 13:47] LABS: Appearance,Urine Cloudy (Clear); Bacteria,Urine Rare /hpf; Bilirubin,Urine Negative (Negative); Glucose,Urine (UA) 4+ (Negative); Leukocyte Esterase,Urine Large (Negative); Mucus,Urine Occasional /hpf; Nitrite,Urine Negative (Negative); Particle Count 7778; Protein,Urine Trace (Negative); RBC,Urine 5 /hpf (0-5); Specific Gravity,Urine 1.022 (1.001-1.035); Squamous Epithelial Cell,Urine 12 /hpf (0-4); UA Billing (MACRO vs. MICRO) MICRO; WBC,Urine 17 /hpf (0-5)
[2017-03-06 14:06] LABS: Ketones,Urine 4+ (Negative)
[2017-03-06 14:48] LABS: ALT 18 U/L (9-52); AST 12 U/L (14-36); Alkaline Phosphatase 70 U/L (38-126); Anion Gap 10 mmol/L; Basophils % (A) 1 %; Blood Urea Nitrogen 8 mg/dL (7-17); CH 30.2; CHCM 34.3; Calcium 9.5 mg/dL (8.4-10.2); Carbon Dioxide 23 mmol/L (22-30); Chloride 99 mmol/L (98-107); Eosinophils % (A) 1 %; Glucose 203 mg/dL (74-99); HCT 37.4 % (34.0-46.0); HGB 12.3 gm/dL (11.4-16.0); Luc # (Auto) 0.15; Luc % (Auto) 2; Lymphocytes # (A) 1.9 k/uL (1.0-4.8); Lymphocytes % (A) 28 %; MCH 29.1 pg (25.0-35.0); MCV 88.3 fL (80.0-100.0); Magnesium 1.6 mg/dL (1.6-2.3); Mean Platelet Volume 6.7; Monocytes # (A) 0.3 k/uL (0-1.0); Monocytes % (A) 4 %; Neutrophils # (A) 4.5 k/uL (1.3-7.7); Neutrophils % (A) 65 %; Non-African American GFR(MDRD) >60 (>60 ml/min/1.73 sqM); Phosphorous 3.9 mg/dL (2.5-4.5); Potassium 4.3 mmol/L (3.5-5.1); RBC 4.23 m/uL (3.80-5.40); RDW 12.3 % (11.5-15.5); Sodium 132 mmol/L (137-145); Total Bilirubin 0.5 mg/dL (0.2-1.3); Total Protein 7.2 g/dL (6.3-8.2); WBC 6.9 k/uL (3.8-10.6); WBC (Perox) 7.26
[2017-03-06 14:50] LABS: Creatine Kinase <20 U/L (30-135); HCG,Qualitative Serum Detected
[2017-03-06 15:00] LABS: Creatine Kinase MB <0.2 ng/mL (0.0-2.4); Troponin I <0.012 ng/mL (0.000-0.034)
[2017-03-06] MEDS ORDERED: METOCLOPRAMIDE 5 MG/ML 2 ML VIAL IVP STA (15:01)
[2017-03-06 15:53] VITALS: BP 123/85; PULSE 94; TEMP 97.7
== END 2017-03-06 15:56 | disposition home or self-care (01) ==
LOC: EC 12:34
DX: O21.0 Mild hyperemesis gravidarum (principal); O99.282 Endocrine, nutritional and metabolic diseases complicating pregnancy, second trimester; E86.0 Dehydration; O24.012 Pre-existing type 1 diabetes mellitus, in pregnancy, second trimester; E10.9 Type 1 diabetes mellitus without complications; Z79.4 Long term (current) use of insulin; Z83.3 Family history of diabetes mellitus; Z3A.00 Weeks of gestation of pregnancy not specified
CPT/HCPCS: 36415; 80053; 82550; 82553; 83735; 84100; 84484; 85025; 81001; 84703; 87086; 99285; 96365; 96375 ×4; 96361; J1200; J3415; J2765; J2405; J0696